=== PATIENT | male | born 1985 | race Two or more races ===

== ENCOUNTER 2024-04-25 10:42 | Emergency (ER) | payer OTHER ==
[~2024-04-25] VITALS: Ht 162.6 cm; Wt 59.0 kg
== END 2024-04-25 15:56 | disposition home or self-care (01) ==
LOC: ER 10:45
DX: S62.626A Displaced fracture of middle phalanx of right little finger, initial encounter for closed fracture (principal); W22.8XXA Striking against or struck by other objects, initial encounter; Y93.89 Activity, other specified; Y92.89 Other specified places as the place of occurrence of the external cause